=== PATIENT | male | born 1940 | race Caucasian/White ===

== ENCOUNTER 2017-07-12 15:34 | Emergency (ER) | payer MEDICARE | END 2017-07-12 18:41 | disposition home or self-care (01) | LOC: D.ER 15:34 | DX: S00.83XA Contusion of other part of head, initial encounter (principal); W06.XXXA Fall from bed, initial encounter; Y93.89 Activity, other specified; Y92.013 Bedroom of single-family (private) house as the place of occurrence of the external cause; I10 Essential (primary) hypertension ==

== ENCOUNTER 2019-01-31 05:49 | Day surgery (SDC) | payer MEDICARE ==
[2019-01-30 09:10] LABS: BASOPHILS 0.1 % (0-2); EOSINOPHILS 4.2 % (0-7); HEMOGLOBIN 10.4 g/dL (13.5-17.5); IMMATURE GRANULOCYTES 0.1 % (0-5); LYMPHOCYTES 13.1 % (15-50); MCH 32.1 pg (26.0-34.0); MCHC 33.5 g/dL (31.0-37.0); MCV 95.7 fL (80.0-100.0); MEAN PLATELET VOLUME 9.7 fL (7.4-10.4); MONOCYTES 7.2 % (2-11); NEUTROPHILS 75.3 % (40-80); PLATELET COUNT 167 10x3/uL (130-400); RBC 3.24 10x6/uL (4.20-6.10); WBC 7.4 10x3/uL (4.8-10.8)
[2019-01-30 09:24] LABS: ANION GAP 13.8 mmol/L (8-16); CALCIUM 8.1 mg/dL (8.5-10.1); CARBON DIOXIDE 29.2 mmol/L (21.0-32.0); CREATININE - SERUM 10.5 mg/dL (0.6-1.3); INR 1.18 (0.85-1.17); PROTIME 14.5 SECONDS (11.6-15.0)
[~2019-01-31] VITALS: Ht 167.6 cm; Wt 67.6 kg
--- NOTE | ~2019-01-31 | OP ---
PATIENT NAME: MG SANCHEZ MEDICAL RECORD: [id number] :38 LOCATION:[facility] ADMISSION DATE: SURGEON: NINO CARSON MD DATE OF OPERATION: 01/31/2019 REFERRING PHYSICIAN: Tex Harvey MD PREOPERATIVE DIAGNOSES: End-stage renal disease and dependence on hemodialysis and malignant lesion, probable basal cell carcinoma of the skin of the right forearm. 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 OPERATION PERFORMED: Excision of malignant lesion with margins, 1.2 cm diameter squamous cell carcinoma. SURGEON: Nino Carson MD ANESTHESIA: Local MAC with 1% lidocaine without epinephrine and 0.25% Marcaine without epinephrine. PREOPERATIVE NOTE: Mr. Sanchez is a very nice 78-year-old white male patient who resides at [facility]. 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 It is not clinically fixed to the underlying vascular structure and he is brought to the OR today with plans to excise this hopefully with a fairly simple procedure. The patient was placed on the operating table in supine position and sedated and monitored per TEAM GUIDE, prepped and draped in a sterile manner. Skin and subcutaneous tissues anesthetized with local anesthesia, an elliptical incision oriented with the long axis of the underlying AV fistula was made in the cancer along with a small but significant margin was taken with sharp dissection. Margins were identified with sutures and the specimen sent for frozen section examination. That was reported then as being a squamous cell carcinoma with clear margins. I used a very minimal amount of electrocautery for hemostasis. I raised skin flaps with sharp dissection and closed the wound with interrupted simple 4-0 Prolene sutures. The wound was subsequently dressed with Xeroform gauze and dry 4 x 4 gauze and rolled gauze and then Spandage. He was awakened from his anesthetic and taken back to the outpatient department. He will be returning to see me in my office next week. He will continue his routine dialysis schedule Wednesday and Fridays at [facility]. He is to leave the original operative dressing intact until his dialysis on Wednesday. I am requesting that after dialysis on Wednesday and Wednesday that the sutured incision be redressed and treated with a light application of topical mupirocin ointment. This will need to be continued until after the sutures have been removed, which will likely be in about 10 days to 2 weeks. Blood loss during the procedure was trivial about 1 cc. Sponges, instruments, and needles were accounted for. No drain was used and the surgical specimen consisted of the excised skin lesion and margin. OPERATIVE REPORT [id number] MG SANCHEZ TRANSINT:[id number] Voice Confirmation ID: [id number] DOCUMENT ID: [id number] cc: [facility] [id number] NINO CARSON MD CC: TEX HARVEY MD [id number] DICTATION DATE: 01/31/19 1016 [employer]: 01/31/[address] [facility] 01/31/19 [facility] [address] [place] [address]
[~2019-01-31 05:49] MED LIST: CELEXA10 MG PO; LONITEN2.5 MG PO; NORVASC10 MG PO; RENA-VITE TABL0.8 MG PO; RENAGEL800 MG PO; TERAZOSIN HCL2 MG PO; TOPROL XL100 MG PO; ULTRAM50 MG PO
--- NOTE | 2019-01-31 06:53 | NUR ---
[address] GVIEN VERBALLY OVER PHONE TO DR. SHORT. STATES OKAY TO CONTINUE WITH PREOP MEDS & IV. Ivelisse CHEN R.N. 0655 PT STATES NO CHANGES TO HEALTH HISTORY SINCE INTERVIEWED 01/30/19. Ivelisse CHEN R.N.
[2019-01-31 06:56] VITALS: BP 143/63; Ht 167.6 cm; Wt 67.6 kg
--- NOTE | 2019-01-31 07:22 | NUR ---
0720 LAB VALUES CLEAR PER NEPHROLOGY PARAMETERS WITH THE EXCEPTION OF ABNORMAL CT SCAN RESULTS CALLED TO DR. SHORT. DR. CARSON CALLED WITH MESSAGE LEFT TO CHECK PT.'S CT RESULTS PRIOR TO SURGERY. Ivelisse CHEN R.N.
== END 2019-01-31 10:32 | disposition home or self-care (01) ==
LOC: D.OPS 05:49 → D.PAN 08:00 → D.OPS 10:32
PROVIDERS: Anesthesiology; ATTEND Surgery
DX: C44.622 Squamous cell carcinoma of skin of right upper limb, including shoulder (principal); N18.6 End stage renal disease; Z99.2 Dependence on renal dialysis; T82.898A Other specified complication of vascular prosthetic devices, implants and grafts, initial encounter; Z01.812 Encounter for preprocedural laboratory examination

== ENCOUNTER → 2019-04-03 15:00 | Outpatient (CLI) | payer MEDICARE ==
[2019-01-31 06:56] VITALS: BMI 24.1
== END | disposition home or self-care (01) ==
LOC: D.US 15:00
PROVIDERS: ATTEND Internal Medicine Nephrology
DX: R60.0 Localized edema (principal); M79.661 Pain in right lower leg

== ENCOUNTER → 2019-05-25 09:13 | Outpatient (CLI) | payer MEDICARE ==
[2019-01-31 06:56] VITALS: BMI 24.1
== END | disposition home or self-care (01) ==
LOC: D.CT 09:13
PROVIDERS: ATTEND Internal Medicine Pulmonary Disease
DX: R91.8 Other nonspecific abnormal finding of lung field (principal)